=== PATIENT | female | born 1980 | race Caucasian/White ===

== ENCOUNTER 2023-08-02 17:39 | Inpatient (IN) | payer MEDICAID ==
[~2023-08-02] VITALS: Ht 162.6 cm; Wt 90.9 kg
[2023-08-02] MEDS ORDERED: HALOPERIDOL 5 MG TABLET PO PRN (21:00)
[2023-08-02 21:32] VITALS: BP 119/75; PULSE 73; RESP 19; TEMP 97.3
[2023-08-02 22:31] VITALS: BP 119/73; PULSE 73; RESP 19; TEMP 97.3; O2SAT 99
[2023-08-02] MEDS: ZOLPIDEM TARTRATE 10 MG TABLET PO PRN (23:13)
[2023-08-02] MEDS ORDERED: INFLUENZA VIRUS VACCINE QVS 2023-24 (6MO+)/PF 60 MCG/0.5 ML SYRINGE IM. ONE (23:15)
[2023-08-03 10:18] VITALS: BP 98/61; PULSE 72; RESP 18; TEMP 96.8; O2SAT 97
[2023-08-03] MEDS: LORazepam 2 MG TABLET PO PRN ×2 (14:57→22:54)
[2023-08-03] MEDS ORDERED: DENTURE ADHESIVE 68 GM CREAM DT PRN (16:15)
[2023-08-03] MEDS: BusPIRone HCL 10 MG TABLET PO SCH (16:45)
[2023-08-03] MEDS: LevETIRAcetam 250 MG TABLET PO SCH (17:26)
[2023-08-03] MEDS: GABAPENTIN 100 MG CAPSULE PO SCH (17:26)
[2023-08-03] MEDS ORDERED: ONDANSETRON HCL 4 MG TABLET PO PRN (19:15)
[2023-08-03] MEDS ORDERED: MAGNESIUM HYDROXIDE SUSPENSION 30 ML UDCUP PO PRN (19:15)
[2023-08-03] MEDS ORDERED: CloNIDine HCL 0.1 MG TABLET PO PRN (19:15)
[2023-08-03] MEDS ORDERED: DOCUSATE SODIUM 100 MG CAPSULE PO PRN (19:15)
[2023-08-03] MEDS ORDERED: LOPERAMIDE HCL 2 MG CAPSULE PO PRN (19:15)
[2023-08-03] MEDS ORDERED: BACITRACIN 28 GM OINTMENT TP PRN (19:15)
[2023-08-03] MEDS ORDERED: BENZOCAINE/MENTHOL LOZENGE PO PRN (19:15)
[2023-08-03] MEDS ORDERED: OMEPRAZOLE 20 MG CAPSULE PO PRN (19:15)
[2023-08-03] MEDS ORDERED: ACETAMINOPHEN 325 MG TABLET PO PRN (19:15)
[2023-08-03] MEDS ORDERED: ALBUTEROL SULFATE HFA 90 MCG/PUFF 8 GM INHALER IH PRN (19:15)
[2023-08-03] MEDS ORDERED: PETROLATUM,WHITE 28 GM JELLY TP PRN (19:15)
[2023-08-03] MEDS ORDERED: MAG HYDROX/ALUMINUM HYD/SIMETH ES 30 ML SUSPENSION UDCUP PO PRN (19:15)
[2023-08-03 20:44] VITALS: BP 111/74; PULSE 92; RESP 18; TEMP 98.1; O2SAT 98
[2023-08-03] MEDS: ZOLPIDEM TARTRATE 10 MG TABLET PO PRN (21:23)
[2023-08-04] MEDS: LURASIDONE HCL 40 MG TABLET PO SCH (06:54)
[2023-08-04 07:47] LABS: BASOPHILS % (AUTO) 0.7 % (0.0-2.0); EOSINOPHILS % (AUTO) 1.9 % (1.0-6.0); HEMATOCRIT 34.3 % (36-46); HEMOGLOBIN 11.9 g/dL (12.0-16.0); LYMPHOCYTES # (AUTO) 2.8 K/uL (1.0-4.8); MEAN CORPUSCULAR HEMOGLOBIN 31.9 pg (26.0-34.0); MEAN CORPUSCULAR HGB CONC 34.8 G/dL (31.0-37.0); MEAN CORPUSCULAR VOLUME 92 fL (80-100); MONOCYTES # (AUTO) 0.6 K/uL (0.1-1.0); NEUTROPHILS # (AUTO) 5.3 K/uL (1.8-7.7); NEUTROPHILS % (AUTO) 59.4 % (40.0-70.0); PLATELET COUNT (AUTO) 251 K/uL (150-450); RED BLOOD CELL COUNT(AUTO) 3.73 MIL/uL (4.00-5.20); RED CELL DISTRIBUTION WIDTH 13.8 % (11.5-14.5)
[2023-08-04 08:00] LABS: HEMOGLOBIN A1C 5.5 % (3.8-5.6)
[2023-08-04 08:16] LABS: ALBUMIN 3.4 g/dL (3.4-5.0); BILIRUBIN,TOTAL 0.2 mg/dL (0.1-1.0); CALCIUM, TOTAL 8.7 mg/dL (8.8-10.5); CHOL/HDL RATIO 3.7 (3.9-5.7); CREATININE 1.03 mg/dL (0.60-1.30); THYROID STIMULATING HORMONE 1.5 uIU/mL (0.36-3.74); TOTAL PROTEIN, SERUM 6.9 g/dL (6.4-8.2)
[2023-08-04] MEDS: LevETIRAcetam 250 MG TABLET PO SCH ×2 (09:13→16:05)
[2023-08-04] MEDS: PRAZOSIN HCL 2 MG CAPSULE PO SCH (09:13)
[2023-08-04] MEDS: GABAPENTIN 100 MG CAPSULE PO SCH ×3 (09:13→16:05)
[2023-08-04] MEDS: LISINOPRIL 10 MG TABLET PO SCH (09:14)
[2023-08-04] MEDS: ATENOLOL 25 MG TABLET PO SCH (09:14)
[2023-08-04] MEDS: BusPIRone HCL 10 MG TABLET PO SCH ×2 (09:14→16:05)
[2023-08-04] MEDS: VENLAFAXINE HCL 150 MG ER CAPSULE PO SCH (09:15)
[2023-08-04 10:38] VITALS: BP 115/72; PULSE 86; RESP 18; TEMP 97.6; O2SAT 98
[2023-08-04] MEDS: LORazepam 2 MG TABLET PO PRN (20:06)
[2023-08-04 20:07] VITALS: BP 118/73; PULSE 79; RESP 18; TEMP 97.7
[2023-08-04 21:07] VITALS: RESP 18
[2023-08-04] MEDS: ZOLPIDEM TARTRATE 10 MG TABLET PO PRN (21:49)
[2023-08-05] MEDS: LURASIDONE HCL 40 MG TABLET PO SCH (06:36)
[2023-08-05] MEDS: VENLAFAXINE HCL 150 MG ER CAPSULE PO SCH (08:35)
[2023-08-05] MEDS: BusPIRone HCL 10 MG TABLET PO SCH (08:35)
[2023-08-05] MEDS: PRAZOSIN HCL 2 MG CAPSULE PO SCH (08:35)
[2023-08-05] MEDS: LevETIRAcetam 250 MG TABLET PO SCH (08:35)
[2023-08-05] MEDS: LISINOPRIL 10 MG TABLET PO SCH (08:38)
[2023-08-05] MEDS: GABAPENTIN 100 MG CAPSULE PO SCH ×2 (08:38→12:18)
[2023-08-05] MEDS: ATENOLOL 25 MG TABLET PO SCH (08:38)
[2023-08-05 10:01] VITALS: BP 122/69; PULSE 86; RESP 18; TEMP 98.1
[2023-08-05] MEDS ORDERED: VENL-68 PO (12:16)
[2023-08-05] MEDS ORDERED: BUSP10TA23 PO (12:16)
[2023-08-05] MEDS ORDERED: LURA40TA2 PO (12:16)
[2023-08-05] MEDS ORDERED: GABA-1216 PO (14:22)
[2023-08-05] MEDS ORDERED: ATEN-73 PO (14:22)
[2023-08-05] MEDS ORDERED: LISI-893 PO (14:22)
[2023-08-05] MEDS ORDERED: PRAZ2 PO (14:23)
[2023-08-05] MEDS ORDERED: LEVE250T4 PO (14:23)
== END 2023-08-05 16:53 | disposition home or self-care (01) | DRG 754 ==
LOC: 3EI 20:00
PROVIDERS: ADMIT Psychiatry & Neurology Psychiatry; ATTEND Psychiatry & Neurology Psychiatry
DX: F32.9 Major depressive disorder, single episode, unspecified (principal); G40.909 Epilepsy, unspecified, not intractable, without status epilepticus; R45.851 Suicidal ideations; F20.9 Schizophrenia, unspecified; E66.9 Obesity, unspecified; I10 Essential (primary) hypertension; F41.9 Anxiety disorder, unspecified; F10.90 Alcohol use, unspecified, uncomplicated; G47.00 Insomnia, unspecified; K59.00 Constipation, unspecified; Z72.0 Tobacco use; Z68.34 Body mass index [BMI] 34.0-34.9, adult
CPT/HCPCS: 80053; 80061; 83036; 84443; 85025; 87081